=== PATIENT | male | born 1970 | race Caucasian/White ===

== ENCOUNTER 2017-09-21 13:05 | Emergency (ER) | payer SELFPAY ==
[~2017-09-21] VITALS: Ht 188 cm; Wt 102.3 kg
[~2017-09-21 13:05] MED LIST: CIPR500T4 PO
[2017-09-21] MEDS ORDERED: IOHEXOL 350 MG/ML 10 ML VIAL (for RAD DIAG) IVCONTRAST ONE (13:06)
[2017-09-21 13:32] VITALS: BP 157/86; PULSE 85; RESP 18; TEMP 98.1; O2SAT 99
--- NOTE | 2017-09-21 14:57 | PD ---
HPI Chief Complaint: Abdominal pain Time Seen by Provider: 14:25 Travel History International Travel<30 days: No Contact w/Intl Traveler<30days: No Traveled to known affect area: No History of Present Illness HPI This patient complains of abdominal pain. Duration is 9 days. Location is periumbilical. He is having a chronic mild to moderate grade abdominal pain. However it is worse after he eats. He is not having active vomiting or diarrhea or rectal bleeding. No fever. He does have nausea. No alleviating factors. No abdominal surgeries. He has a known small umbilical hernia. [facility] Past Medical History Kidney Stones: Yes Past Surgical History Surgical History: No Previous Surgery Social History Alcohol Use: No Tobacco Use: Yes (VAPES) Substance Use: Yes (THC) Allergies-Medications (Allergen,Severity, Reaction): Coded Allergies: bee venom protein (honey bee) (Unverified Allergy, Severe, 09/21/17) Reported Meds & Prescriptions Reported Meds & Active Scripts Active Review of Systems General / Constitutional: No: Fever Eyes: No: Visual changes HENT: No: Headaches Cardiovascular: No: Chest Pain or Discomfort Respiratory: No: Shortness of Breath Gastrointestinal: Positive: Nausea, Abdominal Pain Genitourinary: No: Dysuria Musculoskeletal: No: Pain Skin: No Rash Neurologic: No: Weakness Psychiatric: No: Depression Endocrine: No: Polydipsia Hematologic/Lymphatic: No: Easy Bruising Physical Exam Narrative GENERAL: Well-nourished, well-developed patient in no apparent distress. SKIN: Focused skin assessment reveals no rash and nodules. Skin is Warm and dry. HEAD: Atraumatic. Normocephalic. EYES: Pupils equal and round. No scleral icterus. No injection or drainage. ENT: No nasal bleeding or discharge. Mucous membranes pink and moist. NECK: Trachea midline. No JVD. CARDIOVASCULAR: Regular rate and rhythm. No murmur appreciated. RESPIRATORY: No accessory muscle use. Clear to auscultation. Breath sounds equal bilaterally. GASTROINTESTINAL: Abdomen soft, non-tender, nondistended. Hepatic and splenic margins not palpable. Small umbilical hernia is easily reducible MUSCULOSKELETAL: No obvious deformities. No clubbing. No cyanosis. No edema. NEUROLOGICAL: Awake and alert. No obvious cranial nerve deficits. Motor grossly within normal limits. Normal speech. PSYCHIATRIC: Appropriate mood and affect; insight and judgment normal. Data Data Last Documented VS Vital Signs Date Time Temp Pulse Resp B/P (MAP) Pulse Ox O2 Delivery O2 Flow Rate FiO2 09/21/17 13:32 98.1 85 18 157/86 (109) 99 Orders Orders Electrocardiogram (09/21/17 13:36) Complete Blood Count With Diff (09/21/17 13:36) Comprehensive Metabolic Panel (09/21/17 13:36) Lipase (09/21/17 13:36) Ct Abd/Pel W Iv Contrast(Rout) (09/21/17 ) Iohexol 350 Inj (Omnipaque 350 Inj) (09/21/17 13:06) Labs Laboratory Tests Test 09/21/17 16:23 White Blood Count 13.9 TH/MM3 Red Blood Count 5.23 MIL/MM3 Hemoglobin 16.2 GM/DL Hematocrit 45.2 % Mean Corpuscular Volume 86.4 FL Mean Corpuscular Hemoglobin 30.9 PG Mean Corpuscular Hemoglobin Concent 35.8 % Red Cell Distribution Width 13.5 % Platelet Count 234 TH/MM3 Mean Platelet Volume 8.8 FL Neutrophils (%) (Auto) 73.6 % Lymphocytes (%) (Auto) 16.7 % Monocytes (%) (Auto) 7.4 % Eosinophils (%) (Auto) 1.0 % Basophils (%) (Auto) 1.3 % Neutrophils # (Auto) 10.3 TH/MM3 Lymphocytes # (Auto) 2.3 TH/MM3 Monocytes # (Auto) 1.0 TH/MM3 Eosinophils # (Auto) 0.1 TH/MM3 Basophils # (Auto) 0.2 TH/MM3 CBC Comment DIFF FINAL Differential Comment Blood Urea Nitrogen 15 MG/DL Creatinine 0.95 MG/DL Random Glucose 83 MG/DL Total Protein 7.8 GM/DL Albumin 3.9 GM/DL Calcium Level 9.1 MG/DL Alkaline Phosphatase 114 U/L Aspartate Amino Transf (AST/SGOT) 14 U/L Alanine Aminotransferase (ALT/SGPT) 24 U/L Total Bilirubin 0.4 MG/DL Sodium Level 143 MEQ/L Potassium Level 4.0 MEQ/L Chloride Level 105 MEQ/L Carbon Dioxide Level 32.1 MEQ/L Anion Gap 6 MEQ/L Estimat Glomerular Filtration Rate 85 ML/MIN Lipase 111 U/L [facility] Medical Decision Making Medical Screen Exam Complete: Yes Emergency Medical Condition: Yes Medical Record Reviewed: Yes Differential Diagnosis Colitis, ileus, gastroparesis Narrative Course I have reviewed the patient's electronic medical record. Abdominal pain workup is ordered. He may ultimately need a workup for mesenteric ischemia if today's workup is negative. Given his age of 47 without significant medical history that is not high on my list. Also irritable bowel syndrome and gastroparesis are possibilities. CBC shows minimal leukocytosis of 13,000 Metabolic studies are normal I am awaiting CT reading. If reading is delayed I will have the evening physician check the results. If it comes up soon and I will disposition the patient. Diagnosis Primary Impression: Abdominal pain Qualified Codes: R10.84 - Generalized abdominal pain Additional Instructions: The patient was advised to follow up with their physician and return if they worsen. Med/Other Pt SpecificInfo: Other Disposition: 01 DISCHARGE HOME Condition: Stable Delfin Chapman MD Sep 21, 2017 14:57
[2017-09-21 16:36] LABS: AUTOMATED NEUTROPHIL # 10.3 TH/MM3 (1.8-7.7); BASOPHIL # 0.2 TH/MM3 (0-0.2); BASOPHIL % 1.3 % (0.0-2.0); EOSINOPHIL # 0.1 TH/MM3 (0-0.4); HEMATOCRIT 45.2 % (39.0-51.0); HEMOGLOBIN 16.2 GM/DL (13.0-17.0); LYMPH % 16.7 % (9.0-44.0); LYMPHOCYTE # 2.3 TH/MM3 (1.0-4.8); MEAN CELL VOLUME 86.4 FL (80.0-100.0); MEAN CORPUSCULAR HEMOGLOBIN 30.9 PG (27.0-34.0); MEAN CORPUSCULAR HGB CONC 35.8 % (32.0-36.0); MEAN PLATELET VOLUME 8.8 FL (7.0-11.0); MONO % 7.4 % (0.0-8.0); NEUT % 73.6 % (16.0-70.0); PLATELET COUNT 234 TH/MM3 (150-450); RED BLOOD COUNT 5.23 MIL/MM3 (4.50-5.90); RED CELL DISTRIBUTION WIDTH 13.5 % (11.6-17.2); WHITE BLOOD COUNT 13.9 TH/MM3 (4.0-11.0)
[2017-09-21 16:48] LABS: ALBUMIN 3.9 GM/DL (3.4-5.0); ALT (GPT) 24 U/L (12-78); AST (GOT) 14 U/L (15-37); BICARBONATE 32.1 MEQ/L (21.0-32.0); BLOOD UREA NITROGEN 15 MG/DL (7-18); CALCIUM 9.1 MG/DL (8.5-10.1); CHLORIDE 105 MEQ/L (98-107); CREATININE 0.95 MG/DL (0.60-1.30); GLOMERULAR FILTRATION RATE 85 ML/MIN (>89); GLUCOSE,RANDOM 83 MG/DL (74-106); SODIUM (NA) 143 MEQ/L (136-145)
[2017-09-21 16:50] LABS: ALKALINE PHOSPHATASE 114 U/L (45-117); TOTAL BILIRUBIN ADULT 0.4 MG/DL (0.2-1.0); TOTAL PROTEIN 7.8 GM/DL (6.4-8.2)
--- NOTE | 2017-09-21 17:06 | RADRPT ---
EXAM DATE/TIME: 09/21/2017 16:39 [place] COMPARISON: No previous studies available for comparison. INDICATIONS : Syncope and abdominal pain. IV CONTRAST: 97 cc Omnipaque 350 (iohexol) IV ORAL CONTRAST: No oral contrast ingested. RADIATION DOSE: 6.88 CTDIvol (mGy) MEDICAL HISTORY : Renal calculi. SURGICAL HISTORY : None. ENCOUNTER: Initial ACUITY: 1 week PAIN SCALE: 3/10 LOCATION: Bilateral abdomen TECHNIQUE: Volumetric scanning of the abdomen and pelvis was performed. Using automated exposure control and ad justment of the mA and/or kV according to patient size, radiation dose was kept as low as reasonably achievable to obtain optimal diagnostic quality images. DICOM format image data is available electro nically for review and comparison. FINDINGS: LOWER LUNGS: The visualized lower lungs are clear. LIVER: Homogeneous density without lesion. There is no dilation of the biliary tree. There is a single smal l 1-2 mm high density focus along the gallbladder wall which could represent a small stone. SPLEEN: Normal size without lesion. PANCREAS: Within normal limits. KIDNEYS: Normal in size and shape. There is no solid mass or hydronephrosis. There are multiple small bilater al nonobstructing renal calculi. ADRENAL GLANDS: Within normal limits. There is a small cyst in the right kidney. VASCULAR: There is no aortic aneurysm. BOWEL/MESENTERY: No oral contrast was given limiting the sensitivity of the exam. The stomach, small bowel, and colon demonstrate no acute abnormality. There is no free intraperitoneal air or fluid. There is a normal-a ppearing appendix with gas which extends down into a small right inguinal hernia. ABDOMINAL WALL: Within normal limits. RETROPERITONEUM: There is no lymphadenopathy. BLADDER: No wall thickening or mass. REPRODUCTIVE: Within normal limits. INGUINAL: There is no lymphadenopathy. Small right inguinal hernia containing a portion of the appendix. MUSCULOSKELETAL: Within normal limits for patient age. CONCLUSION: 1. Multiple small nonobstructing bilateral renal calculi 2. Possible small gallstone with no wall thickening or pericholecystic fluid. 3. Normal appendix which extends down into a small right inguinal hernia. Magan Suarez MD on September 21, 2017 at 16:58 Board Certified Radiologist. This report was verified electronically.
--- NOTE | 2017-09-21 17:31 | PD ---
Data Data Last Documented VS Vital Signs Date Time Temp Pulse Resp B/P (MAP) Pulse Ox O2 Delivery O2 Flow Rate FiO2 09/21/17 13:32 98.1 85 18 157/86 (109) 99 Orders Orders Complete Blood Count With Diff (09/21/17 13:36) Comprehensive Metabolic Panel (09/21/17 13:36) Lipase (09/21/17 13:36) Ct Abd/Pel W Iv Contrast(Rout) (09/21/17 ) Iohexol 350 Inj (Omnipaque 350 Inj) (09/21/17 13:06) Ed Discharge Order (09/21/17 17:32) Labs Laboratory Tests Test 09/21/17 16:23 White Blood Count 13.9 TH/MM3 Red Blood Count 5.23 MIL/MM3 Hemoglobin 16.2 GM/DL Hematocrit 45.2 % Mean Corpuscular Volume 86.4 FL Mean Corpuscular Hemoglobin 30.9 PG Mean Corpuscular Hemoglobin Concent 35.8 % Red Cell Distribution Width 13.5 % Platelet Count 234 TH/MM3 Mean Platelet Volume 8.8 FL Neutrophils (%) (Auto) 73.6 % Lymphocytes (%) (Auto) 16.7 % Monocytes (%) (Auto) 7.4 % Eosinophils (%) (Auto) 1.0 % Basophils (%) (Auto) 1.3 % Neutrophils # (Auto) 10.3 TH/MM3 Lymphocytes # (Auto) 2.3 TH/MM3 Monocytes # (Auto) 1.0 TH/MM3 Eosinophils # (Auto) 0.1 TH/MM3 Basophils # (Auto) 0.2 TH/MM3 CBC Comment DIFF FINAL Differential Comment Blood Urea Nitrogen 15 MG/DL Creatinine 0.95 MG/DL Random Glucose 83 MG/DL Total Protein 7.8 GM/DL Albumin 3.9 GM/DL Calcium Level 9.1 MG/DL Alkaline Phosphatase 114 U/L Aspartate Amino Transf (AST/SGOT) 14 U/L Alanine Aminotransferase (ALT/SGPT) 24 U/L Total Bilirubin 0.4 MG/DL Sodium Level 143 MEQ/L Potassium Level 4.0 MEQ/L Chloride Level 105 MEQ/L Carbon Dioxide Level 32.1 MEQ/L Anion Gap 6 MEQ/L Estimat Glomerular Filtration Rate 85 ML/MIN Lipase 111 U/L MDM Supervised Visit with JENNY: No Narrative Course Patient CARE assume from Dr. Kocisco at 1700, I am asked to follow-up CAT scan and disposition the patient probably. Patient on my examination is a completely benign abdomen, he states his pain worsens with food, he states he drinks a lot of lemonade on a regular basis. Certainly symptoms could be in line with an ulcer. His CAT scan is reassuring there are couple of incidental findings which were discussed with the patient Last 24 hours Impressions Abdomen/Pelvis CT 09/21/17 0000 Signed Impressions: Service Date/Time: Thursday, September 21, 2017 16:39 - CONCLUSION: 1. Multiple small nonobstructing bilateral renal calculi 2. Possible small gallstone with no wall thickening or pericholecystic fluid. 3. Normal appendix which extends down into a small right inguinal hernia. Magan Suarez MD He was not given anything for pain by Dr. Mota at this time states he is pain-free and is not hurting at all. Discussed with him follow-up with his primary care physician and/or construction equipment operator and return to ED criteria. Discussed Intermedic management with Zantac and Tums Diagnosis Primary Impression: Abdominal pain Qualified Codes: R10.84 - Generalized abdominal pain Additional Instruction: Follow-up with your primary care physician and consider following up with a construction equipment operator above for consideration of endoscopy and colonoscopy. Try Zantac [id number] also consider Tums as needed Disposition: 01 DISCHARGE HOME Condition: Stable Arun Ndiaye MD Sep 21, 2017 17:31
== END 2017-09-21 17:46 | disposition home or self-care (01) ==
LOC: NEPD 13:05
DX: R10.84 Generalized abdominal pain (principal); R11.0 Nausea; D72.829 Elevated white blood cell count, unspecified; Z72.0 Tobacco use; Z87.442 Personal history of urinary calculi
CPT/HCPCS: 74177; 80053; 83690; 85025; 99284; Q9967